=== PATIENT | male | born 2000 | race Two or more races ===

== ENCOUNTER 2024-02-04 21:50 | Inpatient (IN) | payer OTHER ==
[2024-02-04 22:25] VITALS: BMI 25.1
[2024-02-04] MEDS ORDERED: ONDANSETRON *ODT* 4 MG TABLET SL PRN (22:51)
[2024-02-04] MEDS ORDERED: ACETAMINOPHEN 325 MG TABLET (FP) PO PRN (22:51)
[2024-02-04] MEDS ORDERED: MAGNESIUM HYDROX 2400MG/30ML ORAL SUSPENSION 30 ML CUP PO PRN (22:51)
[2024-02-04] MEDS ORDERED: DICYCLOMINE HCL 10 MG CAPSULE PO PRN (22:51)
[2024-02-04] MEDS ORDERED: NALOXONE HCL 0.4 MG/ML VIAL IM PRN (22:51)
[2024-02-04] MEDS ORDERED: BENZONATATE 200 MG CAPSULE PO PRN (22:51)
[2024-02-04] MEDS ORDERED: IBUPROFEN 400 MG TABLET (FP) PO PRN (22:51)
[2024-02-04] MEDS ORDERED: BISMUTH SUBSALICYLATE 524 MG/30 ML PO PRN (22:51)
[2024-02-04] MEDS ORDERED: NALOXONE HCL (KLOXXADO) 8 MG SPRAY NS PRN (22:51)
[2024-02-04] MEDS ORDERED: LOPERAMIDE HCL 2 MG CAPSULE PO PRN (22:51)
[2024-02-04] MEDS ORDERED: MAG HYDROX/AL HYDROX/SIMETH 30 ML UNIT-DOSE CUP PO PRN (22:51)
[2024-02-04] MEDS ORDERED: BENZOCAINE/MENTHOL (CHLORASEPTIC ) LOZENGE MM PRN (22:51)
[2024-02-04] MEDS ORDERED: POLYETHYLENE GLYCOL (HEALTHYLAX) 3350 17 GM PACKET PO PRN (22:51)
[2024-02-04] MEDS ORDERED: guaiFENesin 600 MG TABLET.ER (FP) PO PRN (22:51)
[2024-02-04] MEDS ORDERED: IBUPROFEN 600 MG TABLET (FP) PO PRN (22:51)
[2024-02-05] MEDS: hydrOXYzine PAMOATE 25 MG CAPSULE (FP) PO PRN (08:52)
[2024-02-05] MEDS: METHOCARBAMOL 500 MG TABLET PO PRN (08:52)
[2024-02-05] MEDS: NICOTINE POLACRILEX 4 MG GUM BUC PRN (08:56)
[2024-02-05] MEDS: NICOTINE 14 MG/24 HOURS TOPICAL PATCH TD SCH (09:08)
[2024-02-05] MEDS: BACITRACIN ZINC 15 GM TUBE TOPICAL OINTMENT TP SCH (09:08)
[2024-02-05] MEDS: PRENATAL VITAMINS W/ FOLIC ACID TABLET (FP) PO SCH (09:08)
[2024-02-05] MEDS ORDERED: BACITRACIN ZINC 15 GM TUBE TOPICAL OINTMENT TP SCH (10:00)
[2024-02-05] MEDS: MELATONIN 5 MG TABLETS PO SCH (22:15)
[2024-02-05] MEDS: THIAMINE 100 MG TABLET PO SCH (22:15)
[2024-02-06 09:44] VITALS: BP 122/76; PULSE 82; RESP 16; TEMP 98.1
== END 2024-02-06 11:50 | disposition home or self-care (01) | DRG 775 ==
LOC: YASAS 21:50 → Y6N 02-05 01:48
PROVIDERS: ADMIT Allergy & Immunology; ATTEND Surgery
PROC: HZ2ZZZZ Detoxification Services for Substance Abuse Treatment (ICD-10-PCS; principal; 2024-02-05)
DX: F10.20 Alcohol dependence, uncomplicated (principal); F12.20 Cannabis dependence, uncomplicated; F17.290 Nicotine dependence, other tobacco product, uncomplicated; F31.9 Bipolar disorder, unspecified; F41.9 Anxiety disorder, unspecified; J45.20 Mild intermittent asthma, uncomplicated; M45.7 Ankylosing spondylitis of lumbosacral region; M54.40 Lumbago with sciatica, unspecified side; G89.29 Other chronic pain; Z86.69 Personal history of other diseases of the nervous system and sense organs; Z88.0 Allergy status to penicillin
CPT/HCPCS: 80305; 82962; 93005; 93010